=== PATIENT | female | born 1945 | race Caucasian/White ===

== ENCOUNTER 2017-12-25 16:09 | Observation (INO) | payer OTHER ==
--- NOTE | 2017-12-25 16:11 | EDM.PDOC ---
ED HPI GENERAL MEDICAL PROBLEM - General Stated Complaint: DIZZINESS AND HEADACHES Time Seen by Provider: 12/25/17 16:11 Source of Information: Reports: Patient History Limitations: Reports: No Limitations - History of Present Illness INITIAL COMMENTS - FREE TEXT/NARRATIVE: History of present illness: []Patient awoke this morning not feeling well having intermittent bending type dizziness and had chest tightness with radiation to bilateral jaws and neck stiffness while in the [employer] store for approximately 2 hours this afternoon. She is not had any recent illnesses denies any nausea, vomiting, sweating or syncope. She currently does not have any chest pain in the ED. Review of systems: As per history of present illness and below otherwise all systems reviewed and negative. Past medical history: As per history of present illness and as reviewed below otherwise noncontributory. Surgical history: As per history of present illness and as reviewed below otherwise noncontributory. Social history: No reported history of drug or alcohol abuse. Family history: As per history of present illness and as reviewed below otherwise noncontributory. Physical exam: General: Well developed, well nourished in NAD HEENT: Atraumatic, normocephalic, pupils reactive, negative for conjunctival pallor or scleral icterus, mucous membranes moist, throat clear, neck supple, nontender, trachea midline. Lungs: Clear to auscultation, breath sounds equal bilaterally, chest nontender. Heart: S1S2, regular, negative for clicks, rubs, or JVD. Abdomen: Soft, nondistended, nontender. Negative for masses or hepatosplenomegaly. Negative for costovertebral tenderness. Pelvis: Stable nontender. Genitourinary: Deferred. Rectal: Deferred. Extremities: Atraumatic, negative for cords or calf pain. Neurovascular unremarkable. Neuro: Awake, alert, oriented. Cranial nerves II through XII unremarkable. Cerebellum unremarkable. Motor and sensory unremarkable throughout. Exam nonfocal. Skin:warm and dry Diagnostics: EKG, CT head, CBC, chemistry, UA Therapeutics: Observation, meclizine, aspirin CT done ED Course: Consulted hospitalist for observation to rule out ME Impression: Chest pain, dizziness Prescriptions: None Plan: Admit to hospitalist service for observation Definitive disposition and diagnosis as appropriate pending reevaluation and review of above. headache Pain Score (Numeric/FACES): 1 - Related Data Allergies Allergy/AdvReac Type Severity Reaction Status Date / Time ibuprofen [From Motrin] Allergy Cannot Verified 12/25/17 16:13 Remember Home Meds: Home Meds . [No Known Home Meds] 12/25/17 [History] ED ROS GENERAL - Review of Systems Review Of Systems: ROS reveals no pertinent complaints other than HPI. ED EXAM, NEURO - Physical Exam Exam: See Below (See history of present illness) Course - Vital Signs Last Recorded V/S: Last Vital Signs Temp 98.2 F 12/25/17 16:11 Pulse 82 12/25/17 17:15 Resp 18 12/25/17 17:15 BP 161/67 H 12/25/17 17:15 Pulse Ox 94 L 12/25/17 17:15 - Orders/Labs/Meds Orders: Active Orders 24 hr Category Date Time Status EKG Documentation Completion [RC] STAT Care 12/25/17 16:12 Active Head wo Cont [CT] Stat Exams 12/25/17 16:12 Taken Sodium Chloride 0.9% [Saline Flush] Med 12/25/17 16:12 Active 10 ml FLUSH ASDIRECTED PRN Sodium Chloride 0.9% [Saline Flush] Med 12/25/17 16:12 Active 2.5 ml FLUSH ASDIRECTED PRN Saline Lock Insert [OM.PC] Stat Oth 12/25/17 16:12 Ordered Medication Orders Sodium Chloride (Saline Flush) 10 ml FLUSH ASDIRECTED PRN PRN Reason: Keep Vein Open Last Admin: 12/25/17 16:31 Dose: 10 ml Sodium Chloride (Saline Flush) 2.5 ml FLUSH ASDIRECTED PRN PRN Reason: Keep Vein Open Last Admin: 12/25/17 16:31 Dose: 2.5 ml Labs: Laboratory Tests 12/25/17 12/25/17 12/25/17 Range/Units 16:15 16:15 16:30 WBC 6.09 (4.0-11.0) K/uL RBC 4.95 (4.30-5.90) M/uL Hgb 15.6 (12.0-16.0) g/dL Hct 45.5 (36.0-46.0) % MCV 91.9 (80.0-98.0) fL MCH 31.5 (27.0-32.0) pg MCHC 34.3 (31.0-37.0) g/dL RDW Std Deviation 41.6 (28.0-62.0) fl RDW Coeff of Maty 12 (11.0-15.0) % Plt Count 207 (150-400) K/uL MPV 10.20 (7.40-12.00) fL Neut % (Auto) 49.8 (48.0-80.0) % Lymph % (Auto) 38.6 (16.0-40.0) % [place] % (Auto) 10.5 (0.0-15.0) % Eos % (Auto) 0.8 (0.0-7.0) % Baso % (Auto) 0.3 (0.0-1.5) % Neut # (Auto) 3.0 (1.4-5.7) K/uL Lymph # (Auto) 2.4 (0.6-2.4) K/uL [place] # (Auto) 0.6 (0.0-0.8) K/uL Eos # (Auto) 0.1 (0.0-0.7) K/uL Baso # (Auto) 0.0 (0.0-0.1) K/uL Nucleated RBC % 0.0 /100WBC Nucleated RBCs # 0 K/uL Sodium 139 (136-145) mmol/L Potassium 3.8 (3.5-5.1) mmol/L Chloride 104 (98-107) mmol/L Carbon Dioxide 25.9 (21.0-32.0) mmol/L BUN 22 H (7.0-18.0) mg/dL Creatinine 0.6 (0.6-1.0) mg/dL Est Cr Clr Drug Dosing 62.07 mL/min Estimated GFR (MDRD) > 60.0 ml/min Glucose 97 (74-106) mg/dL Calcium 9.5 (8.5-10.1) mg/dL Total Bilirubin 0.5 (0.2-1.0) mg/dL AST 18 (15-37) IU/L ALT 20 (14-63) IU/L Alkaline Phosphatase 63 (46-116) U/L Troponin I < 0.050 (0.000-0.056) ng/mL Total Protein 7.5 (6.4-8.2) g/dL Albumin 4.0 (3.4-5.0) g/dL Globulin 3.5 (2.0-3.5) g/dL Albumin/Globulin Ratio 1.1 L (1.3-2.8) Urine Color YELLOW Urine Appearance CLEAR Urine pH 6.0 (5.0-8.0) Ur Specific [place] <= 1.005 (1.001-1.035) Urine Protein NEGATIVE (NEGATIVE) mg/dL Urine Glucose (UA) NEGATIVE (NEGATIVE) mg/dL Urine Ketones NEGATIVE (NEGATIVE) mg/dL Urine Occult Blood NEGATIVE (NEGATIVE) Urine Nitrite NEGATIVE (NEGATIVE) Urine Bilirubin NEGATIVE (NEGATIVE) Urine Urobilinogen 0.2 (<2.0) EU/dL Ur Leukocyte Esterase NEGATIVE (NEGATIVE) Urine RBC 0-1 (0-2/HPF) Urine WBC 0-1 (0-5/HPF) Ur Epithelial Cells OCCASIONAL (NONE-FEW) Urine Bacteria RARE (NEGATIVE) Meds: Medications Generic Name Dose Route Start Last Admin Trade Name Freq PRN Reason Stop Dose Admin Sodium Chloride 10 ml 12/25/17 16:12 12/25/17 16:31 Saline Flush FLUSH 10 ml ASDIRECTED PRN Administration Keep Vein Open Sodium Chloride 2.5 ml 12/25/17 16:12 12/25/17 16:31 Saline Flush FLUSH 2.5 ml ASDIRECTED PRN Administration Keep Vein Open Discontinued Medications Generic Name Dose Route Start Last Admin Trade Name Freq PRN Reason Stop Dose Admin Sodium Chloride 500 mls @ 999 mls/hr 12/25/17 16:12 12/25/17 16:31 Normal Saline IV 12/25/17 16:42 999 mls/hr .Bolus ONE Administration Meclizine HCl 25 mg 12/25/17 17:26 12/25/17 17:47 Antivert PO 12/25/17 17:27 25 mg ONETIME ONE Administration Departure - Departure Time of Disposition: 18:07 Disposition: Refer to Observation Condition: Good Clinical Impression: Dizziness Chest pain Qualifiers: Chest pain type: unspecified Qualified Code(s): R07.9 - Chest pain, unspecified - Discharge Information *PRESCRIPTION DRUG MONITORING PROGRAM REVIEWED*: Not Applicable *COPY OF PRESCRIPTION DRUG MONITORING REPORT IN PATIENT KAM: Not Applicable - My Orders Last 24 Hours: My Active Orders 12/25/17 16:12 EKG Documentation Completion [RC] STAT Head wo Cont [CT] Stat Sodium Chloride 0.9% [Saline Flush] 10 ml FLUSH ASDIRECTED PRN Sodium Chloride 0.9% [Saline Flush] 2.5 ml FLUSH ASDIRECTED PRN Saline Lock Insert [OM.PC] Stat - Assessment/Plan Last 24 Hours: My Active Orders 12/25/17 16:12 EKG Documentation Completion [RC] STAT Head wo Cont [CT] Stat Sodium Chloride 0.9% [Saline Flush] 10 ml FLUSH ASDIRECTED PRN Sodium Chloride 0.9% [Saline Flush] 2.5 ml FLUSH ASDIRECTED PRN Saline Lock Insert [OM.PC] Stat
[2017-12-25] MEDS ORDERED: Sodium Chloride 0.9% 2.5 ML Syringe FLUSH PRN (16:12)
[2017-12-25] MEDS ORDERED: Sodium Chloride 0.9% 10 ML Syringe FLUSH PRN (16:12)
[2017-12-25] MEDS ORDERED: Sodium Chloride 0.9% 500 ML IV ONE (16:12)
[2017-12-25 17:00] LABS: CHLORIDE,CL 104 mmol/L (98-107); SODIUM,NA 139 mmol/L (136-145)
[2017-12-25] MEDS ORDERED: Meclizine 25 MG Tab PO ONE (17:26)
[2017-12-25] MEDS ORDERED: Enoxaparin 40 MG/0.4 ML Syringe SUBCUT SCH (18:00)
[2017-12-25] MEDS ORDERED: Ondansetron 4 MG/2 ML SDV IVPUSH PRN (18:24)
[2017-12-25] MEDS ORDERED: Morphine 2 MG/ML Syringe IVPUSH PRN (18:24)
[2017-12-25] MEDS ORDERED: Acetaminophen 325 MG Tab PO PRN (18:24)
[2017-12-25] MEDS ORDERED: Ondansetron 4 MG Tab.DIS PO PRN (18:24)
[2017-12-25] MEDS ORDERED: Bisacodyl 5 MG Tab PO PRN (18:24)
[2017-12-25] MEDS ORDERED: Temazepam 15 MG Cap PO PRN (18:24)
--- NOTE | 2017-12-25 18:43 | PCM.HP ---
H&P History of Present Illness - General Date of Service: 12/25/17 Admit Problem/Dx: Admission Diagnosis/Problem Admission Diagnosis/Problem Chest pain - History of Present Illness Initial Comments - Free Text/Narative: Alice Marques is a 72 y/o female with no significant past medical history who presented today to the ER for chest pain and shortness of breath. According to the patient and her , the couple was at the [employer] store in [facility] when suddenly she started feeling dizzy, room spinning and feeling short of breath and some chest tightness. She states that she's felt dizzy before but not as severe as this time. She denies any diaphoresis but she does state her jaw felt tight. This discomfort lasted for an 1 hour when they decided to go to the ER. Denies any tobacco use. She does state her parents had heart disease. The couple is visiting from [facility]. Had been driving the past couple of days. In the ER, the patient was complaining of room spinning. She was given one dose of meclizine. Her initial troponin was negative. She was given one full dose of aspirin. A CT head did not show any intracranial hemorrhage or acute findings. No acute findings on EKG. When I evaluated the patient, she stated she was feeling alot better. No vertigo. No chest pain or dyspnea. She denies any change in vision, cough, chest pain, dyspnea, abdominal pain, dysuria, diarrhea. No focal neurological deficits. headache Pain Score (Numeric/FACES): 1 - Related Data Allergies/Adverse Reactions: Allergies Allergy/AdvReac Type Severity Reaction Status Date / Time ibuprofen [From Motrin] Allergy Cannot Verified 12/25/17 16:13 Remember Home Medications: Home Meds . [No Known Home Meds] 12/25/17 [History] Past Medical History - Past Health History Medical/Surgical History: Denies Medical/Surgical History - Infectious Disease History Infectious Disease History: Reports: Chicken Pox Social & Family History - Family History Family Medical History: Noncontributory - Tobacco Use Smoking Status *Q: Never Smoker Second Hand Smoke Exposure: No - Caffeine Use Caffeine Use: Reports: Coffee - Recreational Drug Use Recreational Drug Use: No H&P Review of Systems - Review of Systems: Review Of Systems: ROS reveals no pertinent complaints other than HPI. Exam - Exam Exam: See Below - Vital Signs Vital Signs: Last Vital Signs Temp 36.7 C 12/25/17 18:24 Pulse 82 12/25/17 18:24 Resp 16 12/25/17 18:24 BP 131/77 12/25/17 18:24 Pulse Ox 96 12/25/17 18:24 Weight: 62.142 kg - Exam General: Alert, Oriented, Cooperative HEENT: Conjunctiva Clear, Hearing Intact, Mucosa Moist & [place], Posterior Pharynx Clear, Pupils Equal, Pupils Reactive Neck: No: JVD, Thyromegaly Lungs: Clear to Auscultation, Normal Respiratory Effort. No: Crackles, Wheezing Cardiovascular: Regular Rate, Regular Rhythm GI/Abdominal Exam: Normal Bowel Sounds, Soft, Non-Tender Extremities: Normal Inspection, Normal Range of Motion, Non-Tender, No Pedal Edema Skin: Warm, Dry Neurological: Cranial Nerves Intact, Strength Equal Bilateral, Normal Gait, Normal Speech, Normal Tone, Sensation Intact. No: Focal Deficit Neuro Extensive - Mental Status: Alert, Oriented x3, Normal Mood/Affect, Normal Cognition Psychiatric: Alert, Normal Affect - Patient Data Lab Results Last 24 hrs: Laboratory Results - last 24 hr 12/25/17 12/25/17 12/25/17 Range/Units 16:15 16:15 16:30 WBC 6.09 (4.0-11.0) K/uL RBC 4.95 (4.30-5.90) M/uL Hgb 15.6 (12.0-16.0) g/dL Hct 45.5 (36.0-46.0) % MCV 91.9 (80.0-98.0) fL MCH 31.5 (27.0-32.0) pg MCHC 34.3 (31.0-37.0) g/dL RDW Std Deviation 41.6 (28.0-62.0) fl RDW Coeff of Maty 12 (11.0-15.0) % Plt Count 207 (150-400) K/uL MPV 10.20 (7.40-12.00) fL Neut % (Auto) 49.8 (48.0-80.0) % Lymph % (Auto) 38.6 (16.0-40.0) % [place] % (Auto) 10.5 (0.0-15.0) % Eos % (Auto) 0.8 (0.0-7.0) % Baso % (Auto) 0.3 (0.0-1.5) % Neut # (Auto) 3.0 (1.4-5.7) K/uL Lymph # (Auto) 2.4 (0.6-2.4) K/uL [place] # (Auto) 0.6 (0.0-0.8) K/uL Eos # (Auto) 0.1 (0.0-0.7) K/uL Baso # (Auto) 0.0 (0.0-0.1) K/uL Nucleated RBC % 0.0 /100WBC Nucleated RBCs # 0 K/uL Sodium 139 (136-145) mmol/L Potassium 3.8 (3.5-5.1) mmol/L Chloride 104 (98-107) mmol/L Carbon Dioxide 25.9 (21.0-32.0) mmol/L BUN 22 H (7.0-18.0) mg/dL Creatinine 0.6 (0.6-1.0) mg/dL Est Cr Clr Drug Dosing 62.07 mL/min Estimated GFR (MDRD) > 60.0 ml/min Glucose 97 (74-106) mg/dL Calcium 9.5 (8.5-10.1) mg/dL Total Bilirubin 0.5 (0.2-1.0) mg/dL AST 18 (15-37) IU/L ALT 20 (14-63) IU/L Alkaline Phosphatase 63 (46-116) U/L Troponin I < 0.050 (0.000-0.056) ng/mL Total Protein 7.5 (6.4-8.2) g/dL Albumin 4.0 (3.4-5.0) g/dL Globulin 3.5 (2.0-3.5) g/dL Albumin/Globulin Ratio 1.1 L (1.3-2.8) Urine Color YELLOW Urine Appearance CLEAR Urine pH 6.0 (5.0-8.0) Ur Specific [place] <= 1.005 (1.001-1.035) Urine Protein NEGATIVE (NEGATIVE) mg/dL Urine Glucose (UA) NEGATIVE (NEGATIVE) mg/dL Urine Ketones NEGATIVE (NEGATIVE) mg/dL Urine Occult Blood NEGATIVE (NEGATIVE) Urine Nitrite NEGATIVE (NEGATIVE) Urine Bilirubin NEGATIVE (NEGATIVE) Urine Urobilinogen 0.2 (<2.0) EU/dL Ur Leukocyte Esterase NEGATIVE (NEGATIVE) Urine RBC 0-1 (0-2/HPF) Urine WBC 0-1 (0-5/HPF) Ur Epithelial Cells OCCASIONAL (NONE-FEW) Urine Bacteria RARE (NEGATIVE) Result Diagrams: 12/25/17 16:15 12/25/17 16:15 Problem List Initiated/Reviewed/Updated: Yes Orders Last 24hrs: Active Orders 24 hr Category Date Time Status Patient Status [ADT] Routine ADT 12/25/17 18:24 Ordered Patient Status [ADT] Stat ADT 12/25/17 18:08 Active Cardiac Monitoring [RC] CONTINUOUS Care 12/25/17 18:25 Ordered EKG Documentation Completion [RC] STAT Care 12/25/17 16:12 Active Intake and Output [RC] QSHIFT Care 12/25/17 18:25 Ordered Oxygen Therapy [RC] PRN Care 12/25/17 18:24 Ordered Up ad Pearl [RC] ASDIRECTED Care 12/25/17 18:24 Ordered VTE/DVT Education [RC] PER UNIT ROUTINE Care 12/25/17 18:24 Ordered Vital Signs [RC] Q4H Care 12/25/17 18:24 Ordered Regular Diet [DIET] Diet 12/25/17 Dinner Ordered Chest 1V Frontal [CR] Routine Exams 12/25/17 18:28 Ordered Head wo Cont [CT] Stat Exams 12/25/17 16:12 Taken COMPREHENSIVE METABOLIC PN,CMP [CHEM] AM Lab 12/26/17 05:11 Ordered TROPONIN I [CHEM] Q8H Lab 12/25/17 23:00 Ordered TROPONIN I [CHEM] Q8H Lab 12/26/17 07:00 Ordered Acetaminophen [Tylenol] Med 12/25/17 18:24 Ordered 650 mg PO Q4H PRN Aspirin Med 12/26/17 09:00 Ordered 81 mg PO DAILY Bisacodyl [Dulcolax] Med 12/25/17 18:24 Ordered 5 mg PO DAILY PRN Enoxaparin [Lovenox] Med 12/25/17 18:30 Ordered 40 mg SUBCUT Q24H Morphine Med 12/25/17 18:24 Ordered 2 mg IVPUSH Q2H PRN Ondansetron [Zofran ODT] Med 12/25/17 18:24 Ordered 4 mg PO Q4H PRN Ondansetron [Zofran] Med 12/25/17 18:24 Ordered 4 mg IVPUSH Q4H PRN Sodium Chloride 0.9% [Saline Flush] Med 12/25/17 16:12 Active 10 ml FLUSH ASDIRECTED PRN Sodium Chloride 0.9% [Saline Flush] Med 12/25/17 16:12 Active 2.5 ml FLUSH ASDIRECTED PRN Temazepam [Restoril] Med 12/25/17 18:24 Ordered 15 mg PO BEDTIME PRN Saline Lock Insert [OM.PC] Stat Oth 12/25/17 16:12 Ordered Resuscitation Status Routine Resus Stat 12/25/17 18:24 Ordered Medication Orders Acetaminophen (Tylenol) 650 mg PO Q4H PRN PRN Reason: Pain (Mild 1-3)/fever Aspirin (Aspirin) 81 mg PO DAILY MARGARET Bisacodyl (Dulcolax) 5 mg PO DAILY PRN PRN Reason: Constipation Enoxaparin Sodium (Lovenox) 40 mg SUBCUT Q24H MARGARET Morphine Sulfate (Morphine) 2 mg IVPUSH Q2H PRN PRN Reason: Pain (severe 7-10) Stop: 12/26/17 18:26 Ondansetron HCl (Zofran Odt) 4 mg PO Q4H PRN PRN Reason: nausea, able to take PO Ondansetron HCl (Zofran) 4 mg IVPUSH Q4H PRN PRN Reason: Nausea Sodium Chloride (Saline Flush) 10 ml FLUSH ASDIRECTED PRN PRN Reason: Keep Vein Open Last Admin: 12/25/17 16:31 Dose: 10 ml Sodium Chloride (Saline Flush) 2.5 ml FLUSH ASDIRECTED PRN PRN Reason: Keep Vein Open Last Admin: 12/25/17 16:31 Dose: 2.5 ml Temazepam (Restoril) 15 mg PO BEDTIME PRN PRN Reason: Sleep Assessment/Plan Comment:: 1. Admit patient to medical floor as observation. 2. Vital signs, I/O's per floor routine. 3. Diet: regular 4. Activity: ad pearl 5. Telemetry 6. Code Status: FULL CODE Assessment: 1. Vertigo 2. chest pain 3. shortness of breath Plan: 1. Chest pain- I suspect that her symptoms were due to her vertigo which has now resolved. However, will monitor serial troponins and start telemetry to rule out ACS. Ordered aspirin daily. 2. Shorness of breath- I suspect that this was likely due to her vertigo symptoms and perhaps getting anxious. Will order a chest xray. Continue to monitor. 3. Vertigo- has now resolved after meclizine administration. Her CT head was negative for any intracranial hemorrhage. No acute findings. Will continue to monitor for now since no neurological deficits observed. Disposition: plan to DC tomorrow if negative trops.
[2017-12-26 07:08] LABS: CHLORIDE,CL 109 mmol/L (98-107); SODIUM,NA 143 mmol/L (136-145)
[2017-12-26] MEDS ORDERED: Aspirin 81 MG Tab.Chew PO SCH (09:00)
--- NOTE | 2017-12-26 11:05 | CT ---
EXAM DATE: 12/25/17 PATIENT'S AGE: 72 Patient: PAM ELIZABETH Facility: [place], [place] Site . Site : [id number] Study: CT Head WO CONT [id number] 5:07:47 PM Ordering Physician: Doctor Ward Final Report: Indication: Pain, headaches, dizziness. Technique: Noncontrast axial CT images of the head were obtained. Coronal and sagittal reformatted images. Comparison: No prior studies are available for comparison at this institution. Findings: The ventricles, sulci and gyri are of normal size, shape and contour for age. Midline structures are centrally located. No convincing evidence of suspicious intra- or extra-axial fluid collections. Mild patchy regions of decreased attenuation within the periventricular and subcortical white matter of both cerebral hemispheres. A few scattered oval hyperdense lesions in the scalp are nonspecific but probably secondary to sebaceous cysts. Impression: 1. No radiographic evidence of acute intracranial abnormalities. 2. Mild supratentorial white matter changes that are non-specific, but statistically most likely related to small vessel ischemic disease. Please note that all CT scans at this facility use dose modulation, iterative reconstruction, and/or weight-based dosing when appropriate to reduce radiation dose to as low as reasonably achievable. Dictated by Chaim Baires MD @ Dec 25 2017 5:10PM (Electronic Signature) Report Signed by Proxy. [facility]ITALTon
--- NOTE | 2017-12-26 11:49 | PCM.DCSUM1 ---
Discharge Summary - Hospital Course Free Text/Narrative:: Admission date: 12/25/17 Discharge date:12/26/17 Admission diagnosis: 1. Chest pain 2. dizziness Discharge diagnosis: 1. ACS ruled out 2. Chest pain, resolved 3. Dizziness, resolved Procedures: none Consults: none Hospital course: Alice Marques is a 72 y/o female who presented to the ER for dizziness and chest pain. The patient was admitted for ACS rule out. Serial troponins remained negative. Her symptoms like chest pain and dizziness resolved after taking one dose of meclizine 25 mg PO. She was instructed to follow-up with her primary care provider within 1-2 weeks. In addition, she was prescribed Meclizine 12.5 mg PO daily PRN. Follow-up: Primary care provider within 1-2 weeks. - Discharge Data Discharge Date: 12/26/17 Discharge Disposition: Home, Self-Care 01 Condition: Fair - Patient Instructions Diet: Regular Diet as Tolerated Activity: As Tolerated Notify Provider of: Fever, Increased Pain, Swelling and Redness, Nausea and/or Vomiting - Discharge Plan *PRESCRIPTION DRUG MONITORING PROGRAM REVIEWED*: Not Applicable *COPY OF PRESCRIPTION DRUG MONITORING REPORT IN PATIENT KAM: Not Applicable Prescriptions/Med Rec: Meclizine [Antivert] 12.5 mg PO DAILY PRN 30 Days #30 tab PRN Reason: Dizziness Home Medications: Home Meds Meclizine [Antivert] 12.5 mg PO DAILY PRN 30 Days #30 tab 12/26/17 [Rx] Patient Handouts: Meclizine tablets or capsules, Vertigo, [id number] - Discharge Summary/Plan Comment DC Time >30 min.: No - Patient Data Vitals - Most Recent: Last Vital Signs Temp 36.9 C 12/26/17 07:31 Pulse 76 12/26/17 07:31 Resp 17 12/26/17 07:31 BP 143/67 H 12/26/17 07:31 Pulse Ox 94 L 12/26/17 07:31 Weight - Most Recent: 62.142 kg I&O - Last 24 hours: Intake & Output 12/25/17 12/26/17 12/26/17 22:59 06:59 14:59 Intake Total 700 Output Total 400 Balance 300 Lab Results - Last 24 hrs: Laboratory Results - last 24 hr 12/25/17 12/25/17 12/25/17 Range/Units 16:15 16:15 16:30 WBC 6.09 (4.0-11.0) K/uL RBC 4.95 (4.30-5.90) M/uL Hgb 15.6 (12.0-16.0) g/dL Hct 45.5 (36.0-46.0) % MCV 91.9 (80.0-98.0) fL MCH 31.5 (27.0-32.0) pg MCHC 34.3 (31.0-37.0) g/dL RDW Std Deviation 41.6 (28.0-62.0) fl RDW Coeff of Maty 12 (11.0-15.0) % Plt Count 207 (150-400) K/uL MPV 10.20 (7.40-12.00) fL Neut % (Auto) 49.8 (48.0-80.0) % Lymph % (Auto) 38.6 (16.0-40.0) % [place] % (Auto) 10.5 (0.0-15.0) % Eos % (Auto) 0.8 (0.0-7.0) % Baso % (Auto) 0.3 (0.0-1.5) % Neut # (Auto) 3.0 (1.4-5.7) K/uL Lymph # (Auto) 2.4 (0.6-2.4) K/uL [place] # (Auto) 0.6 (0.0-0.8) K/uL Eos # (Auto) 0.1 (0.0-0.7) K/uL Baso # (Auto) 0.0 (0.0-0.1) K/uL Nucleated RBC % 0.0 /100WBC Nucleated RBCs # 0 K/uL Sodium 139 (136-145) mmol/L Potassium 3.8 (3.5-5.1) mmol/L Chloride 104 (98-107) mmol/L Carbon Dioxide 25.9 (21.0-32.0) mmol/L BUN 22 H (7.0-18.0) mg/dL Creatinine 0.6 (0.6-1.0) mg/dL Est Cr Clr Drug Dosing 62.07 mL/min Estimated GFR (MDRD) > 60.0 ml/min Glucose 97 (74-106) mg/dL Calcium 9.5 (8.5-10.1) mg/dL Total Bilirubin 0.5 (0.2-1.0) mg/dL AST 18 (15-37) IU/L ALT 20 (14-63) IU/L Alkaline Phosphatase 63 (46-116) U/L Troponin I < 0.050 (0.000-0.056) ng/mL Total Protein 7.5 (6.4-8.2) g/dL Albumin 4.0 (3.4-5.0) g/dL Globulin 3.5 (2.0-3.5) g/dL Albumin/Globulin Ratio 1.1 L (1.3-2.8) Urine Color YELLOW Urine Appearance CLEAR Urine pH 6.0 (5.0-8.0) Ur Specific [place] <= 1.005 (1.001-1.035) Urine Protein NEGATIVE (NEGATIVE) mg/dL Urine Glucose (UA) NEGATIVE (NEGATIVE) mg/dL Urine Ketones NEGATIVE (NEGATIVE) mg/dL Urine Occult Blood NEGATIVE (NEGATIVE) Urine Nitrite NEGATIVE (NEGATIVE) Urine Bilirubin NEGATIVE (NEGATIVE) Urine Urobilinogen 0.2 (<2.0) EU/dL Ur Leukocyte Esterase NEGATIVE (NEGATIVE) Urine RBC 0-1 (0-2/HPF) Urine WBC 0-1 (0-5/HPF) Ur Epithelial Cells OCCASIONAL (NONE-FEW) Urine Bacteria RARE (NEGATIVE) 12/25/17 12/26/17 12/26/17 Range/Units 23:00 06:22 06:22 WBC (4.0-11.0) K/uL RBC (4.30-5.90) M/uL Hgb (12.0-16.0) g/dL Hct (36.0-46.0) % MCV (80.0-98.0) fL MCH (27.0-32.0) pg MCHC (31.0-37.0) g/dL RDW Std Deviation (28.0-62.0) fl RDW Coeff of Maty (11.0-15.0) % Plt Count (150-400) K/uL MPV (7.40-12.00) fL Neut % (Auto) (48.0-80.0) % Lymph % (Auto) (16.0-40.0) % [place] % (Auto) (0.0-15.0) % Eos % (Auto) (0.0-7.0) % Baso % (Auto) (0.0-1.5) % Neut # (Auto) (1.4-5.7) K/uL Lymph # (Auto) (0.6-2.4) K/uL [place] # (Auto) (0.0-0.8) K/uL Eos # (Auto) (0.0-0.7) K/uL Baso # (Auto) (0.0-0.1) K/uL Nucleated RBC % /100WBC Nucleated RBCs # K/uL Sodium 143 (136-145) mmol/L Potassium 4.2 (3.5-5.1) mmol/L Chloride 109 H (98-107) mmol/L Carbon Dioxide 26.8 (21.0-32.0) mmol/L BUN 16 (7.0-18.0) mg/dL Creatinine 0.7 (0.6-1.0) mg/dL Est Cr Clr Drug Dosing 53.21 mL/min Estimated GFR (MDRD) > 60.0 ml/min Glucose 95 (74-106) mg/dL Calcium 8.7 (8.5-10.1) mg/dL Total Bilirubin 0.6 (0.2-1.0) mg/dL AST 16 (15-37) IU/L ALT 21 (14-63) IU/L Alkaline Phosphatase 54 (46-116) U/L Troponin I < 0.050 < 0.050 (0.000-0.056) ng/mL Total Protein 6.1 L (6.4-8.2) g/dL Albumin 3.1 L (3.4-5.0) g/dL Globulin 3.0 (2.0-3.5) g/dL Albumin/Globulin Ratio 1.0 L (1.3-2.8) Urine Color Urine Appearance Urine pH (5.0-8.0) Ur Specific [place] (1.001-1.035) Urine Protein (NEGATIVE) mg/dL Urine Glucose (UA) (NEGATIVE) mg/dL Urine Ketones (NEGATIVE) mg/dL Urine Occult Blood (NEGATIVE) Urine Nitrite (NEGATIVE) Urine Bilirubin (NEGATIVE) Urine Urobilinogen (<2.0) EU/dL Ur Leukocyte Esterase (NEGATIVE) Urine RBC (0-2/HPF) Urine WBC (0-5/HPF) Ur Epithelial Cells (NONE-FEW) Urine Bacteria (NEGATIVE) Med Orders - Current: Current Medications Acetaminophen (Tylenol) 650 mg PO Q4H PRN PRN Reason: Pain (Mild 1-3)/fever Aspirin (Aspirin) 81 mg PO DAILY [facility] Last Admin: 12/26/17 09:21 Dose: Not Given Bisacodyl (Dulcolax) 5 mg PO DAILY PRN PRN Reason: Constipation Enoxaparin Sodium (Lovenox) 40 mg SUBCUT Q24H [facility] Last Admin: 12/25/17 20:04 Dose: Not Given Morphine Sulfate (Morphine) 2 mg IVPUSH Q2H PRN PRN Reason: Pain (severe 7-10) Stop: 12/26/17 18:26 Ondansetron HCl (Zofran Odt) 4 mg PO Q4H PRN PRN Reason: nausea, able to take PO Ondansetron HCl (Zofran) 4 mg IVPUSH Q4H PRN PRN Reason: Nausea Sodium Chloride (Saline Flush) 10 ml FLUSH ASDIRECTED PRN PRN Reason: Keep Vein Open Last Admin: 12/25/17 16:31 Dose: 10 ml Sodium Chloride (Saline Flush) 2.5 ml FLUSH ASDIRECTED PRN PRN Reason: Keep Vein Open Last Admin: 12/25/17 16:31 Dose: 2.5 ml Temazepam (Restoril) 15 mg PO BEDTIME PRN PRN Reason: Sleep Discontinued Medications Sodium Chloride (Normal Saline) 500 mls @ 999 mls/hr IV .Bolus ONE Stop: 12/25/17 16:42 Last Admin: 12/25/17 16:31 Dose: 999 mls/hr Meclizine HCl (Antivert) 25 mg PO ONETIME ONE Stop: 12/25/17 17:27 Last Admin: 12/25/17 17:47 Dose: 25 mg
--- NOTE | 2017-12-26 12:56 | CR ---
EXAM DATE: 12/25/17 PATIENT'S AGE: 72 Patient: PAM ELIZABETH Facility: [place], [place] Site . Site : [id number] Study: XRay Chest [id number]/[id number] 8:48:24 PM Ordering Physician: Thalia Garcia Final Report: INDICATION: Dyspnea TECHNIQUE: Chest 1 view COMPARISON: None FINDINGS: Cardiovascular and mediastinum: Heart size and vasculature are normal in caliber and appearance. Lungs and pleural spaces: Minimal left basilar atelectasis or scarring. Remainder of the lungs and pleural spaces are clear. No pneumothorax. Bones and soft tissues: No significant findings. IMPRESSION: Minimal left basilar atelectasis or scarring. Otherwise unremarkable exam. Dictated by Tato Cedillo MD @ Dec 25 2017 8:58PM (Electronic Signature) Report Signed by Proxy. SUSHMA
== END 2017-12-26 11:45 | disposition home or self-care (01) ==
LOC: MW.ED 16:09 → MW.MS 18:08
PROVIDERS: ADMIT Internal Medicine; ATTEND Internal Medicine
DX: R07.9 Chest pain, unspecified (principal); R42 Dizziness and giddiness; R06.02 Shortness of breath
CPT/HCPCS: 36415; 70450; 71045; 80053; 81001; 84484; 85025; 90662; 93005; 96360; 99285; A9270; G0008; J7040